=== PATIENT | male | born 1985 | race Caucasian/White ===

== ENCOUNTER 2020-05-01 10:30 | Emergency (ER) | payer OTHER ==
[2020-05-01] MEDS ORDERED: EPINEPHrine 1 MG/10 ML SYR IV ONE (10:31)
[2020-05-01] MEDS ORDERED: AMIODARONE HCL 150 MG/3 ML INJ IV ONE (10:31)
[2020-05-01] MEDS ORDERED: D50W 25 GM/50 ML SYRINGE/VIAL IV ONE (10:31)
--- NOTE | 2020-05-01 10:57 | EDPHYS ---
Physician Documentation [facility] Name: Franki Zavaleta Age: 34 yrs Sex: Male : 1985 Arrival Date: 05/01/2020 Time: 10:31 Bed 3 Private MD: ED Physician Sachin Townsend HPI: 05/01 10:49 This 34 yrs old Male presents to ER via EMS with complaints of CPR. rn 10:49 Preceding the arrest, the patient collapsed. The arrest occurred at home. Pre-hospital rn course: The arrest was witnessed Bystanders at the scene performed CPR. EMS care prior to arrival: initiation of ACLS, peripheral IV, was successfully placed. intubation was successfully performed, ACLS details: Initial rhythm was asystole. The presenting rhythm is asystole. Airway: oral intubation, Medications given by EMS prior to arrival - Response to therapy: continued arrest. The patient has not experienced similar symptoms in the past. Per EMS, patient sleeping in chair, heard noise, saw a seizure like episode, then collapsed, called 911, was not breathing, no pulse, bystander CPR for about 30-40 min, EMS arrived, asystole, ACLS started, intubated, with IO. Multiple epinephrine and shocks given, thought to be 2/[address] automatic defibrillator, continued arrest here. Family reports lack of sleep recently, takes adderall, and has blood pressure problems. . Historical: - Allergies: 10:41 Unable to obtain; iw - Home Meds: 10:41 Unable to obtain [Active]; iw - PMHx: 10:41 Unable to obtain; iw - PSHx: 10:41 Hernia repair; iw - Family history:: not pertinent. - Hospitalizations: : No recent hospitalization is reported. - History obtained from: , EMS. ROS: 10:49 Unable to obtain ROS due to comatose state. rn Exam: 10:49 Constitutional: Young male, cyanotic, no spontaneous activity. Head/Face: rn Normocephalic, atraumatic. Eyes: Pupils 5mm, nonreactive, equal ENT: Intubated, no oral trauma noted Neck: NO crepitus Cardiovascular: No spont cardiac activity, no pulse Respiratory: No spont respirations, intubated, equal breath sounds after ETT pulled back from 28cm at teeth to 24 at teeth. Abdomen/GI: non-distended, no discoloration. MS/ Extremity: No spont pulses. + cyanotic extremities with poor cap refill Neuro: Comatose, unresponsive, GCS 3. Vital Signs: 10:41 Temp 98.4(R); iw MDM: 10:38 Patient medically screened. rn 10:56 Differential diagnosis: arrythmia, cardiac arrest, aspiration, cerebral infarct vs rn aneurysm. Data reviewed: vital signs, nurses notes. Response to treatment: There is no appreciated change of the patient's symptoms at this time. ED course: Glucose was OK, no cardiac activity on bedside ECHO.. Administered Medications: 10:29 Drug: EPINEPHrine 0.1mg/mL 1:10,000 1 mg {Note: right IO.} Route: IVP; Site: Other; iw 10:45 Follow up: Response: Cardiac rhythm is unchanged iw 10:33 Drug: EPINEPHrine 0.1mg/mL 1:10,000 1 mg {Note: left shoulder.} Route: IVP; Site: Other;iw 10:40 Follow up: Response: No change in condition; Cardiac rhythm is unchanged iw 14:03 Follow up: Response: No change in condition; Cardiac rhythm is unchanged iw 10:33 Drug: Sodium Bicarbonate 1 amp {Note: left shoudler.} Route: IVP; Site: Other; iw 10:35 Follow up: Response: No change in condition; Cardiac rhythm is unchanged iw 10:36 Drug: EPINEPHrine 0.1mg/mL 1:10,000 1 mg {Note: right shoulder.} Route: IVP; Site: Other; 10:40 Follow up: Response: No change in condition iw 10:39 Drug: EPINEPHrine 0.1mg/mL 1:10,000 1 mg {Note: right shoulder.} Route: IVP; Site: Other; 10:45 Follow up: Response: No change in condition; Cardiac rhythm is unchanged iw 10:41 Drug: EPINEPHrine 0.1mg/mL 1:10,000 1 mg {Note: right shoulder .} Route: IVP; Site: Other; 10:45 Follow up: Response: No change in condition; Cardiac rhythm is unchanged iw Point of Care Testing: Blood Glucose: 10:32 Blood Glucose: 132 mg/dL; iw Ranges: Critical Glucose Levels:Adult <50 mg/dl or >400 mg/dl <40 mg/dl or >180 mg/dl Disposition: 10:56 . rn Disposition: Patient pronounced on 05/01/20 10:45 by Sachin Townsend. Impression: Cardiac arrest. - Released to [employer]. Signatures: Ryann Borjas RN RN iw Nieto, Roman, MD MD rn Calderon, Audri, RN RN aa5 Corrections: (The following items were deleted from the chart) 14:01 10:56 05/01/2020 10:56 Patient pronounced on 05/01/2020 at 10:45 by Sachin Townsend. aa5 Impression: Cardiac arrest. Released to [employer]. rn
--- NOTE | 2020-05-01 10:57 | ER ---
Nurse's Notes [facility] Name: Franki Zavaleta Age: 34 yrs Sex: Male : 1985 Arrival Date: 05/01/2020 Time: 10:31 Bed 3 Private MD: Diagnosis: Cardiac arrest Presentation: 05/01 10:28 Chief complaint: EMS states: toned out at 9:17 for pt with possible seizure, pt blue iw and unresponsive. EMS arrived to scene, pt was asystole on monitor, pt arrives to ER CPR in progress. Care prior to arrival: CPR via thumper performed by bystander and is still in progress Medication(s) given: epi X 5 IO hamida tibia. Compressions began prior to arrival. 10:28 Method Of Arrival: EMS: [facility] iw 10:28 Acuity: RANDY 1 iw 10:28 Coronavirus screen: At this time, the client does not indicate any symptoms associated iw with coronavirus-19. Ebola Screen: Patient negative for fever greater than or equal to 101.5 degrees Fahrenheit, and additional compatible Ebola Virus Disease symptoms Patient denies exposure to infectious person. Patient denies travel to an Ebola-affected area in the 21 days before illness onset. No symptoms or risks identified at this time. Initial Sepsis Screen: Does the patient meet any 2 criteria? No. Patient's initial sepsis screen is negative. Does the patient have a suspected source of infection? No. Patient's initial sepsis screen is negative. Risk Assessment: Do you want to hurt yourself or someone else? Unable to obtain. Onset of symptoms was May 01, 2020. 10:28 Care prior to arrival: Assisted ventilation, Oral intubation. iw Historical: - Allergies: 10:41 Unable to obtain; iw - Home Meds: 10:41 Unable to obtain [Active]; iw - PMHx: 10:41 Unable to obtain; iw - PSHx: 10:41 Hernia repair; iw - Family history:: not pertinent. - Hospitalizations: : No recent hospitalization is reported. - History obtained from: , EMS. Assessment: 10:28 General: Appears well developed, Behavior is unresponsive. Neuro: Level of iw Consciousness is unresponsive, Oriented to none. EENT:. Cardiovascular: pt is cyanotic . Respiratory: Airway via oral intubation Trachea midline. GI: Abdomen is flat, non-distended. Derm: cyanotic. 10:32 CPR assessment: unresponsive, no respiratory effort, intubated, Ambu ventilation, iw cyanotic. Cardiac rhythm is asystole. 10:35 CPR assessment: unresponsive, no respiratory effort, intubated, Ambu ventilation, iw cyanotic. Cardiac rhythm is asystole. 10:37 CPR assessment: unresponsive, no respiratory effort, intubated, Ambu ventilation, iw cyanotic. Cardiac rhythm is asystole. 10:39 CPR assessment: unresponsive, no respiratory effort, intubated, Ambu ventilation, iw cyanotic. Cardiac rhythm is asystole. 10:43 CPR assessment: unresponsive, no respiratory effort, intubated, Ambu ventilation, iw cyanotic. Cardiac rhythm is asystole. Vital Signs: 10:41 Temp 98.4(R); iw ED Course: 10:28 Intubation: 7.5 Fr. ETT. iw 10:31 Patient arrived in ED. em1 10:31 Inserted saline lock: 22 gauge in left ,using aseptic technique. shoulder. iw 10:33 Patient has correct armband on for positive identification. iw 10:33 Inserted saline lock: 20 gauge in right ,using aseptic technique. shoulder. iw 10:36 Ryann Borjas, RN is Primary Nurse. iw 10:38 Sachin Townsend MD is Attending Physician. rn 10:40 Triage completed. iw 10:41 Arm band placed on. iw 10:56 Sachin Townsend MD is Pronouncing Provider. rn Administered Medications: 10:29 Drug: EPINEPHrine 0.1mg/mL 1:10,000 1 mg {Note: right IO.} Route: IVP; Site: Other; iw 10:45 Follow up: Response: Cardiac rhythm is unchanged iw 10:33 Drug: EPINEPHrine 0.1mg/mL 1:10,000 1 mg {Note: left shoulder.} Route: IVP; Site: Other;iw 10:40 Follow up: Response: No change in condition; Cardiac rhythm is unchanged iw 14:03 Follow up: Response: No change in condition; Cardiac rhythm is unchanged iw 10:33 Drug: Sodium Bicarbonate 1 amp {Note: left shoudler.} Route: IVP; Site: Other; iw 10:35 Follow up: Response: No change in condition; Cardiac rhythm is unchanged iw 10:36 Drug: EPINEPHrine 0.1mg/mL 1:10,000 1 mg {Note: right shoulder.} Route: IVP; Site: Other; 10:40 Follow up: Response: No change in condition iw 10:39 Drug: EPINEPHrine 0.1mg/mL 1:10,000 1 mg {Note: right shoulder.} Route: IVP; Site: Other; 10:45 Follow up: Response: No change in condition; Cardiac rhythm is unchanged iw 10:41 Drug: EPINEPHrine 0.1mg/mL 1:10,000 1 mg {Note: right shoulder .} Route: IVP; Site: Other; 10:45 Follow up: Response: No change in condition; Cardiac rhythm is unchanged iw Point of Care Testing: Blood Glucose: 10:32 Blood Glucose: 132 mg/dL; Ranges: Outcome: 10:45 Outcome Patient iw 10:45 Patient : Time of 10:45 Pronounced by Sachin Townsend MD 10:45 Condition: 13:59 Condition: Body released to [facility] per Research Work[employer] Janusz. aa5 14:01 Patient left the ED. aa5 Signatures: Ryann Borjas, RN LAINA Sachin Townsend MD MD rn Martinez, Eric em1 Cyndi Pineda RN RN aa5 Corrections: (The following items were deleted from the chart) 10:55 10:28 Chief complaint: EMS states: toned out at 9:17 for pt had possible seizure, pt iw was blue, unresponsive. EMS arrived to scene, pt was asystole on monitor, pt arrives to ER CPR in progress iw
[2020-05-01 14:15] VITALS: TEMP 98.4
== END 2020-05-01 14:01 ==
LOC: ER 10:30
DX: I46.9 Cardiac arrest, cause unspecified (principal)
CPT/HCPCS: 31500; 96375; 96374; 92950; 99285; J0282; J0171